=== PATIENT | female | born 1975 | race Caucasian/White ===

== ENCOUNTER → 2018-02-16 11:12 | Outpatient (CLI) | payer OTHER, SELFPAY ==
[2018-02-16 14:15] LABS: Absolute Lymphocyte Count 1.24 X10^3/ul (0.83-4.51); Absolute Neutrophil Count 3.1 X10^3/uL (2.0-7.7); Basophil# 0.04 X10^3/uL; Basophil% 0.8 % (0-1); Eosinophil# 0.07 X10^3/uL; Eosinophils% 1.5 % (0-5); Hematocrit 39.2 % (37-47); Hemoglobin 12.8 g/dl (12.0-15.0); Lymphocyte # 1.24 X10^3/ul (4.0); Lymphocyte % 26.1 % (19-41); Mean Corp Hgb Conc 32.7 g/gl (32-36); Mean Corpuscular Hgb 28.9 pg (27.0-32.0); Mean Corpuscular Volume 88.5 fL (81-99); Mean Platelet Vol. 10.7 fl (6.2-12.0); Monocyte# 0.33 X10^3/uL; Monocyte% 6.9 % (0-10); Neutrophil # 3.07 X10^3/uL (2.7-7.7); Neutrophil % 64.5 % (47-70); Platelet Count 266 K/mm3 (150-450); RBC Distribution Width CV 14.2 % (11.6-14.6); RBC Distribution Width SD 45.4 fl (35.1-43.9); Red Blood Count 4.43 M/mm3 (4.2-5.4); White Blood Count 4.8 K/mm3 (4.4-11.0)
[2018-02-16 14:16] LABS: POSITIVE COUNT NO; POSITIVE DIFFERENTIAL NO; POSITIVE MORPHOLOGY NO
[2018-02-16 14:38] LABS: ALB/GLOB Ratio 0.9 RATIO (0.9-2.4); AST(SGOT) 17 U/L (15-37); Alanine Aminotransfer ALT/SGPT 17 U/L (13-56); Albumin, Serum 3.6 g/dL (3.2-5.0); Alkaline Phosphatase 65 U/L (45-117); Anion Gap 7 (5-15); BUN 14 mg/dL (7-18); BUN/Creat Ratio 16.3 RATIO (10-20); Calcium,Total 8.5 mg/dL (8.5-10.1); Chloride 105 mmol/L (98-107); Cholesterol 175 mg/dL (200); Creatinine, Serum 0.86 mg/dL (0.55-1.02); EST Glomerular Filtration Rate 77 mL/min (>60); Est Glom Filt Rate - Afr Amer 93 mL/min (>60); Globulin 3.8 g/dL (2.2-4.2); Glucose 59 mg/dL (74-106); High Density Lipoprotein 59 mg/dL; Potassium 4.1 mmol/L (3.5-5.1); Protein, Total 7.4 g/dL (6.4-8.2); Sodium Level 138 mmol/L (136-145); T4 Free Direct 1.08 ng/dL (0.76-1.46); Thyroid Stim Hormone (TSH) 3.45 uIU/mL (0.358-3.74); Triglycerides 66 mg/dL; Very Low Density Lipoprotein 13 mg/dL (5-40)
[2018-02-16 14:40] LABS: Vitamin D,25 Hydroxy 21.7 ng/mL (29.95-100.01)
[2018-02-23 14:29] LABS: Anti-Thyroglobulin AB > 2250.0 IU/mL (0.0-0.9); Thyroglobulin RIA 20 ng/mL (.); Thyroid Peroxidase AB 11 IU/mL (0-34)
== END ==
PROVIDERS: Family Provider Family Medicine; PCP Family Medicine; Visit Provider Family Medicine
DX: E03.9 Hypothyroidism, unspecified (principal); E66.9 Obesity, unspecified; E55.9 Vitamin D deficiency, unspecified
CPT/HCPCS: 36415; 80053; 80061; 82306; 84432; 84439; 84443; 85025; 86376; 86800

== ENCOUNTER → 2018-02-18 13:11 | Outpatient (CLI) | payer OTHER, SELFPAY ==
--- NOTE | 2018-02-18 13:14 | US_ITS ---
STUDY: THYROID ULTRASOUND REASON FOR EXAM: Female, 42 years old. Thyromegaly. TECHNIQUE: Ultrasound evaluation of the thyroid was performed with real-time and static quinones-scale imaging. COMPARISON: None. FINDINGS: RIGHT LOBE: The right lobe of the thyroid gland measures 4.7 cm x 1.9 cm x 2.2 cm. There is a heterogeneous echotexture. 2 solid hypoechoic nodular stranding in the right lobe. The larger measures 1 cm x 0.7 cm x 0.9 cm. LEFT LOBE: The left lobe of the thyroid gland is enlarged and measures 6.1 cm x 2.3 cm x 2.1 cm. There is a heterogeneous echotexture. 2 subcentimeter solid nodules are seen in the mid and lower pole of the left lobe. The larger measures 9 mm x 9 mm x 8 mm. ISTHMUS: The isthmus is enlarged and measures 6.0 mm. There is a 1.1 cm x 0.9 cm x 0.6 cm hypoechoic solid nodule within the isthmus. The regional lymph nodes are normal. US/Thyroid IMPRESSION: Enlarged isthmus and left lobe of the thyroid gland with bilateral nodules as described. Electronically Signed: Dale Nazario MD at 15:34 EDT Tel [phone], Service support ,
== END ==
LOC: OPUS 13:12
PROVIDERS: Family Provider Family Medicine; PCP Family Medicine; Visit Provider Family Medicine
DX: E01.0 Iodine-deficiency related diffuse (endemic) goiter (principal)
CPT/HCPCS: 76536

== ENCOUNTER → 2018-04-20 11:09 | Outpatient (CLI) | payer OTHER, SELFPAY ==
--- NOTE | 2018-04-19 | ASPS_PTH ---
PATIENT: SAIDA TENORIO LOC: [facility] U#:[id number] AGE/SX: 49/F ROOM: RE04/20/[address]: Dr. Mino Austin MD : 1975 BED: DIS: SPEC #: [id number] RECD: 04/20/18 13:55 STATUS: NADIA SARA #: [id number] JENNY: 04/19/18 00:[address]: Mino Austin DEPT: CYTOLOGY RECD BY: Trung Rios ENTERED: 04/20/18 13:56 SP TYPE: ASPIRATION OTHR DR: Dr. Ivan Flores MD Tissues: Thyroid gland, NOS Procedures: Pap Stain (control) Special Stain Group II Cytology Other HEADER OPERATION: Ultrasound-guided right thyroid fine needle aspiration PRE-OP DIAGNOSIS: Multiple thyroid nodules TISSUE SUBMITTED: Right thyroid nodule (12 slides) DIAGNOSIS CYTOLOGY Fine needle aspiration, right thyroid nodule (smears): Adequate for evaluation. 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 Chronic inflammation. AM:jared 04/21/18 COMMENT Case has been reviewed in consultation with Dr. Guidry who concurs with the above diagnosis. IDC:SJ CYTOLOGY STUDY Slides are reviewed. CYTOLOGY GROSS Received are 12 smears labeled with the patient's name and designated per the requisition as right thyroid nodule. Submitted for staining. / 04/20/18 TC:? CPT: 51452
== END ==
PROVIDERS: Family Provider Family Medicine; PCP Family Medicine; Visit Provider Surgery
DX: E04.1 Nontoxic single thyroid nodule (principal)
CPT/HCPCS: 88161; 88313

== ENCOUNTER 2018-05-26 06:05 | Day surgery (SDC) | payer OTHER, SELFPAY ==
[2018-05-26] VITALS (11 sets, daily range): BP systolic 104–127; BP diastolic 61–76; PULSE 52–82; RESP 16–18; TEMP 36.2–37.4; O2SAT 94–100; BMI 36.9
--- NOTE | 2018-05-26 | THYROID_PTH ---
PATIENT: SAIDA TENORIO [place] [facility] [place] U[place][id number] AGE/SX: 42/F ROOM: RE05/26/[address]: Dr. Mino Austin MD : 1975 BED: DIS: 05/27/2018 SPEC #: [id number] RECD: 05/26/18 09:14 STATUS: NADIA SARA #: [id number] JENNY: 05/26/18 00:[address]: Mino Austin DEPT: SURGICAL PATHOLOGY RECD BY: Chiara Henry ENTERED: 05/26/18 09:50 SP TYPE: THYROID OTHR DR: Dr. Ivan Flores MD Tissues: A - Thyroid gland, NOS B - Lymph node of neck, NOS Procedures: Frozen Section (charge) Surgery Specimen Level IV Surgery Specimen Level V Frozen (no charge) HEADER OPERATION: Right thyroid lobectomy PRE-OP DIAGNOSIS: Multinodular goiter TISSUE SUBMITTED: A ? Right thyroid lobe for frozen collected at 0908, sent to lab at 0910, B ? Central compartment lymph node FROZEN SECTION DIAGNOSIS A. 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 AM:jared 05/26/18 Case has been reviewed in consultation with Dr. Guidry who concurs with the above diagnosis. IDC:SUMAYA MICROSCOPIC DIAGNOSIS A. 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 Two out of two lymph nodes with no pathologic change. B. Central compartment lymph nodes, biopsy: Three out of three lymph nodes with no pathologic change. AM:jared 05/27/18 MICROSCOPIC DESCRIPTION Slides are reviewed. GROSS DESCRIPTION A - Received fresh for frozen section diagnosis labeled with the patient's name is a specimen designated right thyroid lobe. The specimen consists of a thyroid lobectomy specimen measuring 4.5 x 2.5 x 1 cm and weighs 5.7 gm. The specimen is inked as follows: anterior ? black, posterior ? blue, isthmic margin ? yellow. No external parathyroid tissue is identified. The specimen is serially sectioned and reveals ill-defined nodules in the isthmic portion and another one in the superior portion of the thyroid lobe. Three frozen sections are done: 1 ? isthmic nodule, 2 ? uninvolved portion, 3 ? ill-defined nodule in the superior portion of the thyroid. The entire specimen is submitted as follows: 1-3 frozen section (1 ? isthmic nodule, 2 ? lifeline representatives section from the other area, 3 ? ill-defined nodule in the superior portion of the thyroid lobe), 4-7 ? rest of the specimen (4 containing most superior portion and 7 containing most inferior portion). / SUMAYA:jared 05/26/18 B - Received in fixative is one container labeled with the patient's name and designated central compartment lymph node. The specimen consists of a piece of pink soft tissue measuring 1.5 x 0.7 x 0.5 cm. The specimen is bisected and submitted entirely in one cassette. / SJ:jared 05/26/18 TC:3 CPT: 75478, 41041, 67731
[2018-05-26 07:29] LABS: Internal QC Validated? YES +Cl - CLEAR BKGD; Pregnancy, Urine Negative Negative
[2018-05-26] MEDS: Cefazolin 2 GM in 0.9% Normal Saline 100 ML IV (08:25)
--- NOTE | 2018-05-26 08:33 | PCM.OPRPT ---
Problem List (1) Nontoxic multinodular goiter Status: Acute Report of Operation Date of Procedure: 05/26/18 Pre-Operative Diagnosis: e04.2 multinodular goiter Post-Operative Diagnosis: Same Surgery/Procedure Performed:: 73346 Right-sided thyroid lobectomy and isthmusectomy Type of Anesthesia:: General Anesthesiologist: Piter Ramos Estimated Blood Loss (mL): < 25 cc Description of Procedure: Patient was brought into the operating room and placed in the supine position. Under excellent general endotracheal the patient tolerated was placed underneath the shoulder blades and neck was properly extended properly padded. The neck was then sterilely prepped and draped in the usual fashion. Local was injected a cervical incision was made. Subplatysmal flaps were created with the use of electrocautery. Gelpi retractor was placed inside the wound midline strap muscles were opened we started on the right side of the thyroid gland. I first went to the superior pole vessels and took these down with harmonic dissector went to the inferior thyroid vessels and took these down with harmonic dissector and finally the middle thyroidal vein down with harmonic dissector I rotated the gland from lateral to medial standpoint. In the process it was able to identify both the superior and inferior parathyroid glands. As well as the recurrent laryngeal nerve. I transected the isthmus off of the left side of the gland. There was a small lymph node in the central compartment which I removed with the harmonic dissector. I sent the specimen to pathology for frozen section which came back as benign. I inspected the operative cavity excellent hemostasis was achieved. Good hemostasis was noted on the left side of the gland and I did inspect this and did not feel any abnormal palpable lesions. Did have a firm appearance very much reminiscent of what Lopez's thyroiditis would be. Midline strap muscles were brought together with a 2-0 Vicryl. Exparel was injected into the remaining subcutaneous tissues. Deep dermal stitches of 3-0 Vicryl in a running 4-0 Monocryl and Dermabond was applied sterile dressings were applied and the patient tolerated the procedure well. - Admit VTE Documentation VTE Present on Admission: No VTE Mechan Device Prophylaxis: SCD's VTE Pharm Prophylaxis ordered?: No Reason prophylaxis not ordered:: Treatment Not Indicated
[2018-05-26] MEDS: BUPIVACAINE LIPOSOME/PF 20 ML VIAL OPERA.SITE (09:21)
[2018-05-26] MEDS: Lactated Ringers 1,000 ML 75 ML IV (13:58)
[2018-05-26] MEDS: HYDROcodone Bitartrate/Apap 5/325 Tablet PO (14:01)
[2018-05-26] MEDS: Cefazolin 1 GM/50 ML BAG IV (16:09)
[2018-05-26] MEDS: Ibuprofen 200 MG Tablet PO ×2 (16:09→20:54)
[2018-05-27] MEDS: Cefazolin 1 GM/50 ML BAG IV (00:28)
[2018-05-27 00:34] VITALS: BP 100/53; PULSE 64; RESP 16; TEMP 36.7; O2SAT 96
[2018-05-27] MEDS: Ibuprofen 200 MG Tablet PO ×2 (03:56→08:20)
[2018-05-27] MEDS: Lactated Ringers 1,000 ML 75 ML IV (03:56)
[2018-05-27] MEDS: Levothyroxine 88 MCG Tablet PO (05:22)
[2018-05-27 05:23] VITALS: BP 110/66; PULSE 55; RESP 16; TEMP 36.6; O2SAT 97
[2018-05-27 08:12] VITALS: BP 119/69; PULSE 55; RESP 18; TEMP 36.6; O2SAT 99
--- NOTE | 2018-05-27 10:01 | PCM.DC.GB ---
Discharge Diet: Light diet - advance as tolerated Discharge Activity: May Not Drive - for 2-3 days or while taking narcotic pain medications., - - Do not drive, work heavy equipment or sign legal documents for 24 hours. May shower in (days): 1 - with the bandage in place. Additional Activity Instructions:: Pain medication may cause nausea. You should typically eat light foods as you take your pain medications. Pain medication may also cause constipation. If this is a problem for you, please discuss with your doctor. Call your doctor if your incision/area has: Continuous Slow Oozing, Sudden Increased Bleeding, Increased Pain/ Swelling, Increased Redness, Foul Smelling Discharge Call your doctor if you observe: Fever of 101 or Higher Suture Line Care: Avoid Pulling/Pushing, Avoid Pinching/Bending Additional Dressing/Incision Instructions:: Leave operative bandaids on for 2 days. When you remove dressing, leave Steri-Strips on until your follow-up appointment, or until the Steri-Strips fall off on their own. Allergies/Adverse Reactions: Allergies No Known Allergies Allergy (Verified 05/19/18 11:04) Medications to take at Discharge levothyroxine 88 mcg capsule 88 mcg PO QDAY 03/01/18 Cholecalciferol (Vitamin D3) [Vitamin D3] 4,000 unit PO DAILY 05/19/18 Ibuprofen 200 mg PO PRN PRN 05/19/18 Primary Care Physician: Ivan Flores MD [Primary Care Provider] - Test Results: Test results from this visit will be discussed in further detail at your follow-up appointment, if applicable. Please Follow Up With: Mino Austin MD - Please call [phone] to schedule an appointment. When: 7 days after your surgery.
== END 2018-05-27 10:51 | disposition home or self-care (01) ==
LOC: SDC 06:05 → AC 06:06 → MS3 10:17
PROVIDERS: Anesthesiology; Family Provider Family Medicine; PCP Family Medicine; Visit Provider Surgery
PROC: (CPT 60220; principal; 2018-05-26 08:00)
DX: E06.3 Autoimmune thyroiditis (principal); E04.2 Nontoxic multinodular goiter; E03.9 Hypothyroidism, unspecified; Z79.899 Other long term (current) drug therapy
CPT/HCPCS: 00320; 60220; 81025; 88305; 88307; 88331; 88332; J7120; J2405

== ENCOUNTER → 2018-06-03 12:15 | Outpatient (CLI) | payer OTHER, SELFPAY ==
[2018-06-03 14:22] LABS: Vitamin D,25 Hydroxy 20.5 ng/mL (29.95-100.01)
[2018-06-03 14:23] LABS: Thyroid Stim Hormone (TSH) 0.46 uIU/mL (0.358-3.74)
== END ==
LOC: MTLAB 12:17
PROVIDERS: Family Provider Family Medicine; PCP Family Medicine; Visit Provider Family Medicine
DX: M23.8X9 Other internal derangements of unspecified knee (principal); Q65.89 Other specified congenital deformities of hip; G89.29 Other chronic pain; E06.3 Autoimmune thyroiditis; E55.9 Vitamin D deficiency, unspecified
CPT/HCPCS: 36415; 73502; 73564; 82306; 84439; 84443

== ENCOUNTER → 2018-11-11 14:32 | Outpatient (CLI) | payer OTHER, SELFPAY ==
[2018-05-26 11:52] VITALS: BMI 36.9
[2018-11-11 15:44] LABS: Absolute Lymphocyte Count 1.24 X10^3/ul (0.83-4.51); Absolute Neutrophil Count 3.7 X10^3/uL (2.0-7.7); Basophil# 0.02 X10^3/uL; Basophil% 0.4 % (0-1); Eosinophil# 0.06 X10^3/uL; Eosinophils% 1.1 % (0-5); Hematocrit 36.7 % (37-47); Hemoglobin 11.8 g/dl (12.0-15.0); Lymphocyte # 1.24 X10^3/ul (4.0); Lymphocyte % 23.4 % (19-41); Mean Corp Hgb Conc 32.2 g/gl (32-36); Mean Corpuscular Hgb 28.5 pg (27.0-32.0); Mean Corpuscular Volume 88.6 fL (81-99); Mean Platelet Vol. 10.2 fl (6.2-12.0); Monocyte# 0.26 X10^3/uL; Monocyte% 4.9 % (0-10); Neutrophil # 3.72 X10^3/uL (2.7-7.7); POSITIVE COUNT NO; POSITIVE DIFFERENTIAL NO; POSITIVE MORPHOLOGY NO; Platelet Count 276 K/mm3 (150-450); RBC Distribution Width CV 14.1 % (11.6-14.6); RBC Distribution Width SD 45.7 fl (35.1-43.9); Red Blood Count 4.14 M/mm3 (4.2-5.4); White Blood Count 5.3 K/mm3 (4.4-11.0)
[2018-11-11 16:24] LABS: ALB/GLOB Ratio 1.2 RATIO (0.9-2.4); AST(SGOT) 16 U/L (15-37); Alanine Aminotransfer ALT/SGPT 19 U/L (13-56); Albumin, Serum 3.7 g/dL (3.2-5.0); Alkaline Phosphatase 66 U/L (45-117); Anion Gap 8 (5-15); BUN 12 mg/dL (7-18); BUN/Creat Ratio 14.7 RATIO (10-20); Calcium,Total 8.3 mg/dL (8.5-10.1); Chloride 104 mmol/L (98-107); Creatinine, Serum 0.82 mg/dL (0.55-1.02); EST Glomerular Filtration Rate 82 mL/min (>60); Est Glom Filt Rate - Afr Amer 99 mL/min (>60); Globulin 3.2 g/dL (2.2-4.2); Glucose 74 mg/dL (74-106); Potassium 3.9 mmol/L (3.5-5.1); Protein, Total 6.9 g/dL (6.4-8.2); Sodium Level 139 mmol/L (136-145); T4 Free Direct 1.07 ng/dL (0.76-1.46); Thyroid Stim Hormone (TSH) 3.14 uIU/mL (0.358-3.74)
[2018-11-11 17:21] LABS: Vitamin B12 754 pg/mL (211-911); Vitamin D,25 Hydroxy 18.7 ng/mL (29.95-100.01)
== END ==
LOC: MFPLAB 14:33
PROVIDERS: Family Provider Family Medicine; PCP Family Medicine; Visit Provider Family Medicine
DX: E06.3 Autoimmune thyroiditis (principal); R53.83 Other fatigue; E55.9 Vitamin D deficiency, unspecified; E66.9 Obesity, unspecified
CPT/HCPCS: 36415; 80053; 82306; 82607; 84439; 84443; 85025

== ENCOUNTER → 2018-12-28 10:44 | Outpatient (CLI) | payer OTHER, SELFPAY ==
[2018-05-26 11:52] VITALS: BMI 36.9
[2018-12-28 12:44] LABS: Absolute Lymphocyte Count 1.09 X10^3/ul (0.83-4.51); Absolute Neutrophil Count 2.9 X10^3/uL (2.0-7.7); Basophil# 0.02 X10^3/uL; Basophil% 0.5 % (0-1); Eosinophil# 0.05 X10^3/uL; Eosinophils% 1.1 % (0-5); Hematocrit 38.4 % (37-47); Hemoglobin 12.3 g/dl (12.0-15.0); Lymphocyte # 1.09 X10^3/ul (4.0); Lymphocyte % 25.1 % (19-41); Mean Corpuscular Hgb 28.3 pg (27.0-32.0); Mean Corpuscular Volume 88.3 fL (81-99); Mean Platelet Vol. 10.3 fl (6.2-12.0); Monocyte# 0.31 X10^3/uL; Monocyte% 7.1 % (0-10); Neutrophil # 2.88 X10^3/uL (2.7-7.7); Neutrophil % 66.2 % (47-70); Platelet Count 297 K/mm3 (150-450); RBC Distribution Width CV 14.1 % (11.6-14.6); RBC Distribution Width SD 45.8 fl (35.1-43.9); Red Blood Count 4.35 M/mm3 (4.2-5.4); White Blood Count 4.4 K/mm3 (4.4-11.0)
[2018-12-28 12:46] LABS: POSITIVE COUNT NO; POSITIVE DIFFERENTIAL NO; POSITIVE MORPHOLOGY NO
[2018-12-28 13:14] LABS: Vitamin D,25 Hydroxy 45.6 ng/mL (29.95-100.01)
[2018-12-28 13:29] LABS: ALB/GLOB Ratio 1.1 RATIO (0.9-2.4); AST(SGOT) 14 U/L (15-37); Alanine Aminotransfer ALT/SGPT 20 U/L (13-56); Albumin, Serum 3.7 g/dL (3.2-5.0); Alkaline Phosphatase 68 U/L (45-117); Anion Gap 9 (5-15); BUN 13 mg/dL (7-18); BUN/Creat Ratio 14.2 RATIO (10-20); Calcium,Total 8.5 mg/dL (8.5-10.1); Chloride 105 mmol/L (98-107); Creatinine, Serum 0.92 mg/dL (0.55-1.02); EST Glomerular Filtration Rate 71 mL/min (>60); Est Glom Filt Rate - Afr Amer 86 mL/min (>60); Globulin 3.4 g/dL (2.2-4.2); Glucose 86 mg/dL (74-106); Potassium 4.3 mmol/L (3.5-5.1); Protein, Total 7.1 g/dL (6.4-8.2); Sodium Level 140 mmol/L (136-145); T4 Free Direct 1.27 ng/dL (0.76-1.46); Thyroid Stim Hormone (TSH) 1.82 uIU/mL (0.358-3.74)
== END ==
LOC: MTLAB 10:46
PROVIDERS: Family Provider Family Medicine; PCP Family Medicine; Referring Provider Family Medicine; Visit Provider Family Medicine
DX: Z01.818 Encounter for other preprocedural examination (principal); E06.3 Autoimmune thyroiditis; E55.9 Vitamin D deficiency, unspecified
CPT/HCPCS: 36415; 80053; 82306; 84439; 84443; 85025

== ENCOUNTER → 2019-01-03 15:44 | Outpatient (CLI) | payer OTHER, SELFPAY ==
[2018-05-26 11:52] VITALS: BMI 36.9
--- NOTE | 2019-01-03 15:47 | RAD_ITS ---
STUDY: X-RAY CHEST REASON FOR EXAM: Female, 43 years old. Cold like symptoms. TECHNIQUE: PA and lateral views of the chest. COMPARISON: None. FINDINGS: The lungs are clear and expanded. There is no demonstrated pleural abnormality. Normal size heart. Normal mediastinum and ignacio. Normal visualized pulmonary arteries. Normal visualized aortic arch and descending thoracic aorta. There is demineralization of the osseous structures. Normal visualized ribs, clavicles, and shoulders. There is no demonstrated abnormality of the visualized soft tissue structures of the upper abdomen. RAD/Chest PA and Lateral IMPRESSION: Normal x-ray examination of the chest. Electronically Signed: Dale Nazario, at 10:22 EDT , Service support ,
== END ==
LOC: MTRAD 15:46
PROVIDERS: Family Provider Family Medicine; PCP Family Medicine; Referring Provider Family Medicine; Visit Provider Family Medicine
DX: Z01.818 Encounter for other preprocedural examination (principal)
CPT/HCPCS: 71046

== ENCOUNTER → 2019-04-18 09:31 | Outpatient (CLI) | payer OTHER, SELFPAY ==
[2018-05-26 11:52] VITALS: BMI 36.9
[2019-04-18 12:56] LABS: T4 Free Direct 1.03 ng/dL (0.76-1.46); Thyroid Stim Hormone (TSH) 3.03 uIU/mL (0.358-3.74)
[2019-04-18 13:06] LABS: Vitamin D,25 Hydroxy 19.9 ng/mL (29.95-100.01)
== END ==
PROVIDERS: Family Provider Family Medicine; PCP Family Medicine; Referring Provider Family Medicine; Visit Provider Family Medicine
DX: E06.3 Autoimmune thyroiditis (principal); E55.9 Vitamin D deficiency, unspecified
CPT/HCPCS: 36415; 82306; 84439; 84443

== ENCOUNTER → 2021-06-19 08:32 | Outpatient (CLI) | payer OTHER, SELFPAY ==
[2021-06-19 10:20] LABS: Absolute Lymphocyte Count 1.27 X10^3/uL (0.83-4.51); Absolute Neutrophil Count 3.7 X10^3/uL (2.0-7.7); Basophil# 0.04 X10^3/uL; Basophil% 0.7 % (0-1); Eosinophil# 0.08 X10^3/uL; Eosinophils% 1.5 % (0-5); Hemoglobin 12.5 g/dL (12.0-15.0); Lymphocyte # 1.27 X10^3/ul (0.83-4.51); Mean Corp Hgb Conc 32.1 g/dL (32-36); Mean Corpuscular Hgb 28.1 pg (27.0-32.0); Mean Corpuscular Volume 87.6 fL (81-99); Mean Platelet Vol. 10.2 fl (6.2-12.0); Monocyte# 0.36 X10^3/uL; Monocyte% 6.5 % (0-10); NRBC Flagged by Analyzer 0 % (0-5); Neutrophil # 3.73 X10^3/uL (2.7-7.7); Neutrophil % 67.8 % (47-70); Platelet Count 299 K/mm3 (150-450); RBC Distribution Width CV 14.5 % (11.6-14.6); RBC Distribution Width SD 46.4 fl (35.1-43.9); Red Blood Count 4.45 M/mm3 (4.2-5.4); White Blood Count 5.5 K/mm3 (4.4-11.0)
[2021-06-19 10:50] LABS: ALB/GLOB Ratio 0.8 RATIO (0.9-2.4); AST(SGOT) 19 U/L (15-37); Alanine Aminotransfer ALT/SGPT 26 U/L (13-56); Albumin, Serum 3.4 g/dL (3.2-5.0); Alkaline Phosphatase 69 U/L (45-117); Anion Gap 4 (5-15); BUN 16 mg/dL (7-18); BUN/Creat Ratio 17.6 RATIO (10-20); Calcium,Total 8.7 mg/dL (8.5-10.1); Chloride 102 mmol/L (98-107); Cholesterol 203 mg/dL (200); Creatinine, Serum 0.91 mg/dL (0.55-1.02); EST Glomerular Filtration Rate 71 mL/min (>60); Est Glom Filt Rate - Afr Amer 86 mL/min (>60); Glucose 102 mg/dL (74-106); High Density Lipoprotein 61 mg/dL; Potassium 3.9 mmol/L (3.5-5.1); Protein, Total 7.4 g/dL (6.4-8.2); Sodium Level 136 mmol/L (136-145); T4 Free Direct 1.01 ng/dL (0.76-1.46); Thyroid Stim Hormone (TSH) 1.87 uIU/mL (0.358-3.74); Triglycerides 70 mg/dL; Very Low Density Lipoprotein 14 mg/dL (5-40)
[2021-06-19 10:57] LABS: Vitamin D,25 Hydroxy 26.8 ng/mL
[2021-06-20 10:00] LABS: Hemoglobin A1c 5.2 % (3.8-5.6)
== END ==
LOC: MTLAB 08:34
PROVIDERS: PCP Family Medicine; Referring Provider Family Medicine; Visit Provider Family Medicine
DX: E06.3 Autoimmune thyroiditis (principal); E55.9 Vitamin D deficiency, unspecified; R73.09 Other abnormal glucose
CPT/HCPCS: 36415; 80053; 80061; 82306; 83036; 84439; 84443; 85025

== ENCOUNTER → 2021-08-07 | Outpatient (CLI) | payer OTHER, SELFPAY | END | disposition home or self-care (01) | PROVIDERS: PCP Family Medicine; Referring Provider Family Medicine; Visit Provider Family Medicine | DX: N39.0 Urinary tract infection, site not specified (principal) | CPT/HCPCS: 87086; 87088 ==

== ENCOUNTER → 2021-10-01 | Outpatient (CLI) | payer OTHER, SELFPAY | END | disposition home or self-care (01) | LOC: LABSPEC 15:11 | PROVIDERS: PCP Family Medicine; Visit Provider Nurse Practitioner Family | DX: U07.1 COVID-19 (principal) | CPT/HCPCS: 87635; U0005; U0003 ==

== ENCOUNTER → 2022-04-30 | Outpatient (CLI) | payer OTHER, SELFPAY ==
[2022-04-30 10:22] LABS: Absolute Lymphocyte Count 1.17 X10^3/uL (0.83-4.51); Absolute Neutrophil Count 3.6 X10^3/uL (2.0-7.7); Basophil# 0.04 X10^3/uL; Basophil% 0.7 % (0-1); Eosinophil# 0.12 X10^3/uL; Eosinophils% 2.2 % (0-5); Hemoglobin 12.3 g/dL (12.0-15.0); Lymphocyte # 1.17 X10^3/ul (0.83-4.51); Lymphocyte % 21.7 % (19-41); Mean Corp Hgb Conc 32.4 g/dL (32-36); Mean Corpuscular Volume 86.4 fL (81-99); Mean Platelet Vol. 10.3 fl (6.2-12.0); Monocyte# 0.42 X10^3/uL; Monocyte% 7.8 % (0-10); NRBC Flagged by Analyzer 0 % (0-5); Neutrophil # 3.63 X10^3/uL (2.7-7.7); Neutrophil % 67.2 % (47-70); Platelet Count 293 K/mm3 (150-450); RBC Distribution Width CV 15.1 % (11.6-14.6); RBC Distribution Width SD 47.5 fl (35.1-43.9); White Blood Count 5.4 K/mm3 (4.4-11.0)
[2022-04-30 10:40] LABS: Vitamin D,25 Hydroxy 36.5 ng/mL
[2022-04-30 11:26] LABS: ALB/GLOB Ratio 0.9 RATIO (0.9-2.4); AST(SGOT) 16 U/L (15-37); Alanine Aminotransfer ALT/SGPT 19 U/L (13-56); Albumin, Serum 3.3 g/dL (3.2-5.0); Alkaline Phosphatase 70 U/L (45-117); Anion Gap 8 (5-15); BUN 15 mg/dL (7-18); BUN/Creat Ratio 16.2 RATIO (10-20); Calcium,Total 8.9 mg/dL (8.5-10.1); Chloride 104 mmol/L (98-107); Creatinine, Serum 0.93 mg/dL (0.55-1.02); EST Glomerular Filtration Rate 69 mL/min (>60); Est Glom Filt Rate - Afr Amer 84 mL/min (>60); Globulin 3.7 g/dL (2.2-4.2); Glucose 99 mg/dL (74-106); Potassium 4.2 mmol/L (3.5-5.1); Sodium Level 137 mmol/L (136-145); T4 Free Direct 1.01 ng/dL (0.76-1.46)
== END | disposition home or self-care (01) ==
LOC: MTLAB 08:13
PROVIDERS: PCP Family Medicine; Referring Provider Family Medicine; Visit Provider Family Medicine
DX: E06.3 Autoimmune thyroiditis (principal); E55.9 Vitamin D deficiency, unspecified
CPT/HCPCS: 36415; 80053; 82306; 84439; 84443; 85025

== ENCOUNTER → 2022-10-28 | Outpatient (CLI) | payer OTHER, SELFPAY ==
[2022-10-28 10:16] LABS: Absolute Lymphocyte Count 1.02 X10^3/uL (0.83-4.51); Absolute Neutrophil Count 3.1 X10^3/uL (2.0-7.7); Basophil# 0.03 X10^3/uL; Basophil% 0.6 % (0-1); Eosinophils% 2.2 % (0-5); Hematocrit 40.3 % (37-47); Hemoglobin 12.6 g/dL (12.0-15.0); Lymphocyte # 1.02 X10^3/ul (0.83-4.51); Mean Corp Hgb Conc 31.3 g/dL (32-36); Mean Corpuscular Hgb 27.2 pg (27.0-32.0); Mean Corpuscular Volume 86.9 fL (81-99); Monocyte# 0.38 X10^3/uL; Monocyte% 8.2 % (0-10); NRBC Flagged by Analyzer 0 % (0-5); Neutrophil # 3.08 X10^3/uL (2.7-7.7); Neutrophil % 66.6 % (47-70); Platelet Count 297 K/mm3 (150-450); RBC Distribution Width CV 15.2 % (11.6-14.6); RBC Distribution Width SD 48.1 fl (35.1-43.9); Red Blood Count 4.64 M/mm3 (4.2-5.4); White Blood Count 4.6 K/mm3 (4.4-11.0)
[2022-10-28 10:31] LABS: Hemoglobin A1c 5.4 % (3.8-5.6)
[2022-10-28 10:36] LABS: ALB/GLOB Ratio 0.9 RATIO (0.9-2.4); AST(SGOT) 16 U/L (15-37); Alanine Aminotransfer ALT/SGPT 22 U/L (13-56); Albumin, Serum 3.6 g/dL (3.2-5.0); Alkaline Phosphatase 72 U/L (45-117); Anion Gap 7 (5-15); BUN 18 mg/dL (7-18); BUN/Creat Ratio 19.7 RATIO (10-20); Calcium,Total 9.1 mg/dL (8.5-10.1); Chloride 105 mmol/L (98-107); Cholesterol 205 mg/dL (200); Creatinine, Serum 0.92 mg/dL (0.55-1.02); EST Glomerular Filtration Rate 70 mL/min (>60); Est Glom Filt Rate - Afr Amer 85 mL/min (>60); Globulin 3.9 g/dL (2.2-4.2); Glucose 102 mg/dL (74-106); High Density Lipoprotein 58 mg/dL; Potassium 4.6 mmol/L (3.5-5.1); Protein, Total 7.5 g/dL (6.4-8.2); Sodium Level 138 mmol/L (136-145); T4 Free Direct 0.96 ng/dL (0.76-1.46); Thyroid Stim Hormone (TSH) 4.21 uIU/mL (0.358-3.74); Triglycerides 86 mg/dL; Very Low Density Lipoprotein 17 mg/dL (5-40)
[2022-10-28 10:57] LABS: Vitamin D,25 Hydroxy 28.2 ng/mL
== END | disposition home or self-care (01) ==
LOC: MTLAB 08:59
PROVIDERS: PCP Family Medicine; Referring Provider Nurse Practitioner Family; Visit Provider Nurse Practitioner Family
DX: R53.83 Other fatigue (principal); E55.9 Vitamin D deficiency, unspecified; E06.3 Autoimmune thyroiditis; Z13.220 Encounter for screening for lipoid disorders; Z13.1 Encounter for screening for diabetes mellitus
CPT/HCPCS: 36415; 80053; 80061; 82306; 83036; 84439; 84443; 85025

== ENCOUNTER → 2023-04-28 | Outpatient (CLI) | payer OTHER, SELFPAY ==
[2023-04-28 18:10] LABS: Absolute Lymphocyte Count 1.29 X10^3/uL (0.83-4.51); Absolute Neutrophil Count 4.4 X10^3/uL (2.0-7.7); Basophil# 0.04 X10^3/uL; Basophil% 0.6 % (0-1); Eosinophil# 0.07 X10^3/uL; Eosinophils% 1.1 % (0-5); Hematocrit 37.7 % (37-47); Hemoglobin 12.1 g/dL (12.0-15.0); Lymphocyte # 1.29 X10^3/ul (0.83-4.51); Lymphocyte % 20.6 % (19-41); Mean Corp Hgb Conc 32.1 g/dL (32-36); Mean Corpuscular Hgb 28.1 pg (27.0-32.0); Mean Corpuscular Volume 87.5 fL (81-99); Mean Platelet Vol. 10.7 fl (6.2-12.0); Monocyte# 0.48 X10^3/uL; Monocyte% 7.7 % (0-10); NRBC Flagged by Analyzer 0 % (0-5); Neutrophil # 4.35 X10^3/uL (2.7-7.7); Neutrophil % 69.7 % (47-70); Platelet Count 296 K/mm3 (150-450); RBC Distribution Width CV 15.6 % (11.6-14.6); Red Blood Count 4.31 M/mm3 (4.2-5.4); White Blood Count 6.3 K/mm3 (4.4-11.0)
[2023-04-28 18:28] LABS: Vitamin D,25 Hydroxy 31.6 ng/mL
[2023-04-28 18:29] LABS: ALB/GLOB Ratio 0.9 RATIO (0.9-2.4); AST(SGOT) 22 U/L (15-37); Alanine Aminotransfer ALT/SGPT 24 U/L (13-56); Albumin, Serum 3.5 g/dL (3.2-5.0); Alkaline Phosphatase 71 U/L (45-117); Anion Gap 5 (5-15); BUN 9 mg/dL (7-18); BUN/Creat Ratio 9.8 RATIO (10-20); Calcium,Total 8.9 mg/dL (8.5-10.1); Chloride 107 mmol/L (98-107); Cholesterol 178 mg/dL (200); Creatinine, Serum 0.92 mg/dL (0.55-1.02); EST Glomerular Filtration Rate 70 mL/min (>60); Est Glom Filt Rate - Afr Amer 85 mL/min (>60); Globulin 3.8 g/dL (2.2-4.2); Glucose 97 mg/dL (74-106); High Density Lipoprotein 56 mg/dL; Potassium 4.1 mmol/L (3.5-5.1); Protein, Total 7.3 g/dL (6.4-8.2); Sodium Level 139 mmol/L (136-145); T4 Free Direct 1.34 ng/dL (0.76-1.46); Thyroid Stim Hormone (TSH) 0.09 uIU/mL (0.358-3.74); Triglycerides 137 mg/dL; Very Low Density Lipoprotein 27 mg/dL (5-40)
== END | disposition home or self-care (01) ==
PROVIDERS: PCP Family Medicine; Referring Provider Family Medicine; Visit Provider Family Medicine
DX: E06.3 Autoimmune thyroiditis (principal); E66.9 Obesity, unspecified; E55.9 Vitamin D deficiency, unspecified
CPT/HCPCS: 36415; 80053; 80061; 82306; 84439; 84443; 85025

== ENCOUNTER → 2023-11-12 | Outpatient (CLI) | payer OTHER, SELFPAY ==
--- OUTSIDE RECORDS SUMMARY | 2023-11-12 11:50 | XMS RPT_ITS | CCD ---
Author Name Unknown Address [address] [place] [address] Organization [facility] Care Team Providers Care Customer Leader Name Role Phone TOBY WONG, CHANELLE Primary Care Physician NENA WONG, JULIET Attending Unavailable TOBY WONG, CHANELLE Primary Care Unavailable Medications Current Medications Medication Drug Class(es) Dates Sig (Normalized) Sig (Original) famotidine 20 mg oral tablet (2 sources) Histamine-2 Receptor Antagonist Start: 08-22-2021 Pepcid 20 mg oral tablet Dose : 20 mg = 1 tab(s), Oral, BID, # 60 tab(s), 0 Refill(s), Pharmacy: [address], Pelvic pain [facility] exam, 166, cm, 08/22/21 9:14:00 EST, Height, kg, 08/22/21 9:14:00 EST, Dosing Weight Start Date: 08/22/21 Status: Ordered levothyroxine sodium 0.112 mg oral tablet (2 sources) l-Thyroxine Start: 08-22-2021 levothyroxine 112 mcg (0.112 mg) oral tablet Dose : 112 mcg = 1 tab(s), Oral, qDay, # 30 tab(s), 0 Refill(s) Start Date: 08/22/21 Status: Ordered Vitamin D3 (2 sources) Start: 08-22-2021 Vitamin D3 qDay, 0 Refill(s) Start Date: 08/22/21 Status: Ordered Encounters Encounter Date Encounter Type Care Provider Facility Start: 09-06-2023 ambulatory JULIET BARRETT MD Facilit y:B Start: 09-11-2021 End: 09-11-2021 Patient encounter procedure JULIET BARRETT MD [facility] Start: 08-22-2021 End: 08-26-2021 Outreach Lab JULIET BARRETT MD [facility] Procedures Date Procedure Procedure Detail Performing Clinician Start: 10-04-2017 Total replacement of right hip joint JULIET BARRETT MD Start: 10-04-2015 Thyroidectomy JULIET FAGAN MD Biopsy of breast JULIET Sanchez MD Payers Date Payer Category Payer Unknown [id number] 1975 Unknown [id number] Social History Date Type Detail Facility Start: 08-30-2019 Never smoked t obacco (finding) [facility] Sex Assigned At [facility] Clinical Note 04-25-2021 Note Date & Type Note Facility 04-25-2021 Note Patient Outreach ([facility]) SAIDA TENORIO ([id number]) 1975 F Date Time Provider Department 04/25/21 VICKY SCALES During your visit today, we recorded the following information about you: Allergies As of Date: 04/25/2021 (No Known Allergies) Date Reviewed: 01/21/2019 Reviewed by: Doreen Allan RN - Fully Assessed Visit Diagnosis:Encounter for screening mammogram for breast cancer [Z12.31] Order(s):WESLY SCREENING [[id number]] Order #: [id number] FUTURE Prescriptions as of 04/28/2021 - oxyCODONE IR (ROXICODONE) 5 mg immediate release tablet - docusate sodium (COLACE) 100 mg capsule TAKE 1 CAPSULE BY MOUTH TWICE A DAY DIRECTED POST OP USE ONLY - aspirin, enteric coated (ASPIRIN, ENTERIC COATED) 81 mg EC tablet - traMADol (ULTRAM) 50 mg tablet Take 1 tablet by mouth every 4 hours as needed for Pain. - levothyroxine (SYNTHROID) 88 mcg tablet TAKE 1 TABLET BY MOUTH EVERY DAY BEFORE BREAKFAST - Cholecalciferol, Vitamin D3, (VITAMIN D-3) 2,000 unit cap Take by mouth. 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] 02/07/2016 Meralgia paresthetica [G57.10] 07/30/2017 Chronic bilateral low back pain without sciatic*07/30/2017 Pain in right hip [M25.551] 07/30/2017 Hip stiffness, right [M25.651] 07/30/2017 Encounter Status:Closed by FLOR HOPKINS on 04/28/21 [facility] Evaluation + Plan note LaboratoryRadiology Note Date & Type Note Facility Evaluation + Plan note Future Appointments Appointment Date:09/11/2021 01:30:00 PM Scheduled Provider: Location:RAD Appointment Type:US Pelvis Non-OB W/Transvaginal Appointment Date:09/11/2021 02:30:00 PM Scheduled Provider: Location:RAD Appointment Type:MA Mammogram Screening Bilateral w/ Sebas Appointment Date:09/12/2021 08:45:00 AM Scheduled Provider:JULIET BRARETT MD Location: [facility] Appointment Type: OV Diagnostic Tests PendingHPV Screen, DNA Probe 08/22/21 Future Scheduled TestsPathology Tooling Supervisor Request 08/22/21MRI Brain w/ + w/o Contrast 12/05/20US Pelvis Non-OB W/Transvaginal 09/11/21MA Mammo Screening Bilateral w/ Sebas 09/11/21 [facility] Evaluation + Plan note LaboratoryRadiology Note Date & Type Note Facility Evaluation + Plan note Future Appointments Appointment Date:09/12/2021 08:45:00 AM Scheduled Provider:JULIET BARRETT MD Location:[facility] Appointment Type: OV Future Scheduled TestsPathology Tooling Supervisor Request 08/22/21MRI Brain w/ + w/o Contrast 12/05/20 [facility] Hospital course Narrative Note Date & Type Note Facility Hospital course Narrative No data available for this section [facility] Hospital Discharge instructions Note Date & Type Note Facility Hospital Discharge instructions No data available for this section [facility] Summary Purpose Family History No Family History Records FoundNo Family History Records Found Advance Directives No Advanced Directives Records FoundNo Advanced Directives Records Found Additional Source Comments INFORMATION SOURCE (unrecogn ized section and content) DATE CREATED AUTHOR AUTHOR'S ORGANIZ ATION 09/07/2023 [facility] ([place]) FOR RECORDS PERTAINING TO PATIENTS WHO ARE OR HAVE BEEN ENROLLED IN A CHEMICAL DEPENDENCY/SUBSTANCEABUSE PROGRAM, SOME INFORMATION MAY BE OMITTED. This clinical summary was aggregated from multiple sources. Caution should be exercised in using it in the provision of clinical care. This summary normalizes information from multiple sources, and as a consequence, information in this document may materially change the coding, format and clinical context of patient data. In addition, data may be omitted in some cases. CLINICAL DECISIONS SHOULD BE BASED ON THE PRIMARY CLINICAL RECORDS. [employer] [facility]. provides no warranty or guarantee of the accuracy or completeness of information in this document.
[2023-11-12 15:27] LABS: Absolute Lymphocyte Count 1.41 X10^3/uL (0.83-4.51); Absolute Neutrophil Count 3.8 X10^3/uL (2.0-7.7); Basophil# 0.04 X10^3/uL; Basophil% 0.7 % (0-1); Eosinophil# 0.05 X10^3/uL; Eosinophils% 0.9 % (0-5); Hematocrit 38.7 % (37-47); Hemoglobin 12.2 g/dL (12.0-15.0); Lymphocyte # 1.41 X10^3/ul (0.83-4.51); Lymphocyte % 24.4 % (19-41); Mean Corp Hgb Conc 31.5 g/dL (32-36); Mean Corpuscular Hgb 27.1 pg (27.0-32.0); Mean Corpuscular Volume 85.8 fL (81-99); Mean Platelet Vol. 11.1 fl (6.2-12.0); Monocyte# 0.47 X10^3/uL; Monocyte% 8.1 % (0-10); NRBC Flagged by Analyzer 0 % (0-5); Neutrophil % 65.7 % (47-70); Platelet Count 321 K/mm3 (150-450); Red Blood Count 4.51 M/mm3 (4.2-5.4); White Blood Count 5.8 K/mm3 (4.4-11.0)
[2023-11-12 15:51] LABS: AST(SGOT) 18 U/L (15-37); Alanine Aminotransfer ALT/SGPT 21 U/L (13-56); Albumin, Serum 3.7 g/dL (3.2-5.0); Alkaline Phosphatase 74 U/L (45-117); Anion Gap 6 (5-15); BUN 16 mg/dL (7-18); BUN/Creat Ratio 18.8 RATIO (10-20); Chloride 107 mmol/L (98-107); Cholesterol 181 mg/dL (200); Creatinine, Serum 0.85 mg/dL (0.55-1.02); EST Glomerular Filtration Rate 76 mL/min (>60); Est Glom Filt Rate - Afr Amer 91 mL/min (>60); Globulin 3.6 g/dL (2.2-4.2); Glucose 77 mg/dL (74-106); High Density Lipoprotein 55 mg/dL; Protein, Total 7.3 g/dL (6.4-8.2); Sodium Level 138 mmol/L (136-145); Triglycerides 57 mg/dL; Very Low Density Lipoprotein 11 mg/dL (5-40)
[2023-11-12 16:58] LABS: Vitamin D,25 Hydroxy 29.2 ng/mL
== END | disposition home or self-care (01) ==
LOC: MTLAB 11:29
PROVIDERS: PCP Family Medicine; Referring Provider Family Medicine; Visit Provider Family Medicine
DX: E55.9 Vitamin D deficiency, unspecified (principal); E66.9 Obesity, unspecified
CPT/HCPCS: 36415; 80053; 80061; 82306; 85025

== ENCOUNTER → 2024-12-27 | Outpatient (CLI) | payer OTHER, SELFPAY ==
[2024-12-27 17:09] LABS: Absolute Lymphocyte Count 1.46 X10^3/uL (0.83-4.51); Absolute Neutrophil Count 3.9 X10^3/uL (2.0-7.7); Basophil# 0.04 X10^3/uL; Basophil% 0.7 % (0-1); Eosinophil# 0.08 X10^3/uL; Eosinophils% 1.3 % (0-5); Hematocrit 37.9 % (37-47); Hemoglobin 12.6 g/dL (12.0-15.0); Lymphocyte # 1.46 X10^3/ul (0.83-4.51); Lymphocyte % 24.6 % (19-41); Mean Corp Hgb Conc 33.2 g/dL (32-36); Mean Corpuscular Hgb 28.9 pg (27.0-32.0); Mean Corpuscular Volume 86.9 fL (81-99); Mean Platelet Vol. 10.7 fl (6.2-12.0); Monocyte# 0.49 X10^3/uL; Monocyte% 8.2 % (0-10); NRBC Flagged by Analyzer 0 % (0-5); Neutrophil # 3.85 X10^3/uL (2.7-7.7); Neutrophil % 64.9 % (47-70); Platelet Count 290 K/mm3 (150-450); RBC Distribution Width CV 14.7 % (11.6-14.6); RBC Distribution Width SD 46.7 fl (35.1-43.9); Red Blood Count 4.36 M/mm3 (4.2-5.4); White Blood Count 5.9 K/mm3 (4.4-11.0)
[2024-12-27 20:25] LABS: Vitamin D,25 Hydroxy 26.4 ng/mL (30-100)
[2024-12-27 20:37] LABS: Cholesterol 212 mg/dL (<=200); High Density Lipoprotein 69 mg/dL; Low Density Lipoprotein Calc. 123 mg/dL; Triglycerides 98 mg/dL; Very Low Density Lipoprotein 20 mg/dL (5-40); cholesterol:hdl ratio screen 3.05
[2024-12-27 20:39] LABS: ALB/GLOB Ratio 0.5 RATIO (0.9-2.4); AST(SGOT) 38 U/L (<=31); Alanine Aminotransfer ALT/SGPT 22 U/L (<=34); Albumin, Serum 2.6 g/dL (3.5-5.0); Alkaline Phosphatase 73 U/L (35-104); Anion Gap 11 (5-15); BUN 15 mg/dL (4-19); BUN/Creat Ratio 19.4 RATIO (10-20); Carbon Dioxide 24.9 mmol/L (21.0-32.0); Chloride 101 mmol/L (98-108); Creatinine, Serum 0.79 mg/dL (0.70-1.20); EST Glomerular Filtration Rate 92 (>60); Globulin 4.9 g/dL (2.2-4.2); Glucose 89 mg/dL (70-99); Potassium 4.6 mmol/L (3.3-5.1); Protein, Total 7.5 g/dL (5.9-8.4); Sodium Level 137 mmol/L (133-145); Total Bilirubin 0.24 mg/dL (0.00-1.30)
== END | disposition home or self-care (01) ==
LOC: BIMLAB 16:11
PROVIDERS: PCP Internal Medicine; Referring Provider Internal Medicine; Visit Provider Internal Medicine
DX: Z00.00 Encounter for general adult medical examination without abnormal findings (principal); E03.9 Hypothyroidism, unspecified; E55.9 Vitamin D deficiency, unspecified
CPT/HCPCS: 36415; 80053; 80061; 82306; 84443; 85025

== ENCOUNTER → 2025-01-01 | Outpatient (CLI) | payer OTHER, SELFPAY ==
--- NOTE | 2025-01-01 12:59 | US_ITS ---
PROCEDURE: THYROID 01/01/2025 REASON FOR EXAM: 49-year-old female, follow-up thyroid nodule. TECHNIQUE: Thyroid ultrasound COMPARISON: Thyroid ultrasound 02/18/2018. FINDINGS: Prior right hemithyroidectomy. The residual right thyroid tissue measures 2.7 x 0.5 x 0.9 cm. Left thyroid lobe measures 5.3 x 1.8 x 2.2 cm. Isthmus thickness is1.2 cm. Thyroid Size: Normal Background Echotexture: Heterogeneous Thyroid Nodules: Isthmus nodule measures 2.7 x 2.1 x 1.8 cm, mixed cystic and solid, isoechoic, wider than tall, smooth margins without calcification. TR-2. US/Thyroid IMPRESSION: 1. Prior right hemithyroidectomy. 2. TR-2 isthmus nodule. Reading Location: [facility]
== END | disposition home or self-care (01) ==
LOC: US 12:55
PROVIDERS: PCP Internal Medicine; Referring Provider Internal Medicine; Visit Provider Internal Medicine
DX: E04.2 Nontoxic multinodular goiter (principal)
CPT/HCPCS: 76536

== ENCOUNTER → 2025-07-09 | Outpatient (CLI) | payer OTHER, SELFPAY ==
[2025-07-09 15:21] LABS: Hematocrit 42.0 % (37-47); Hemoglobin 13.5 g/dL (12.0-15.0); Immature Granulocytes Count 0.010 X10^3/uL (0.0-0.0); Mean Corp Hgb Conc 32.1 g/dL (32-36); Mean Corpuscular Volume 91.7 fL (81-99); Mean Platelet Vol. 11.1 fl (6.2-12.0); NRBC Flagged by Analyzer 0 % (0-5); Platelet Count 298 K/mm3 (150-450); RBC Distribution Width CV 14.3 % (11.6-14.6); RBC Distribution Width SD 48.2 fl (35.1-43.9); Red Blood Count 4.58 M/mm3 (4.2-5.4); White Blood Count 5.6 K/mm3 (4.4-11.0)
[2025-07-09 15:49] LABS: AST(SGOT) 19 U/L (<=31); Alanine Aminotransfer ALT/SGPT 10 U/L (<=34); Albumin, Serum 4.3 g/dL (3.5-5.0); Alkaline Phosphatase 68 U/L (35-104); Anion Gap 12 (5-15); BUN 11 mg/dL (4-19); BUN/Creat Ratio 12.2 RATIO (10-20); Calcium,Total 9.8 mg/dL (7.6-11.0); Carbon Dioxide 25.0 mmol/L (21.0-32.0); Chloride 102 mmol/L (98-108); Globulin 3.0 g/dL (2.2-4.2); Glucose 83 mg/dL (70-99); Potassium 4.9 mmol/L (3.3-5.1)
[2025-07-11 09:09] LABS: Prealbumin 21 mg/dL (12-34)
== END | disposition home or self-care (01) ==
LOC: BIMLAB 11:55
PROVIDERS: PCP Internal Medicine; Referring Provider Internal Medicine; Visit Provider Internal Medicine
DX: R77.0 Abnormality of albumin (principal); E03.9 Hypothyroidism, unspecified
CPT/HCPCS: 36415; 80053; 84134; 84443; 85025